=== PATIENT | female | born 1935 | race Hispanic/Latino ===

== ENCOUNTER 2017-11-02 09:51 | Outpatient (CLI) | payer MEDICARE ==
--- NOTE | 2017-11-05 07:46 | Cat Scan Report ---
FINAL REPORT EXAM: CT ANGIO NECK HISTORY: OCCLUSION AND STENOSIS OF ROBSON CAROTID ARTERIES TECHNIQUE: CT images are acquired through the neck in angiographic phase following intravenous administration of contrast. Transaxial , coronal and sagittal reformations with maximal intensity projections are provided. PRIORS: None FINDINGS: Normal 3 vessel aortic arch. Atherosclerosis at the right carotid bulb and proximal right internal carotid artery results in 50 percent stenosis by NASCET criteria on axial series 3, images 56 and 57. There is additional stenosis in the 50 percent range in the supraclinoid right internal carotid artery. There is approximately 50 percent stenosis in the proximal right subclavian artery on axial series 3, images 28-31 and sagittal series 202, images 35-37. There is approximately 70 percent stenosis by NASCET criteria at the origin of the left common carotid artery on axial series 3, image 20 and coronal image 40. Additional stenosis in the 50 percent range involving the proximal left internal carotid artery on axial series 3, images 58-60. There is up to 50 percent stenosis in the supraclinoid left internal carotid artery. There is approximately 50 percent stenosis at the origin of the right and left vertebral artery. Otherwise normal caliber of the vertebral arteries. Well opacified and normal caliber basilar artery. Posterior cerebral arteries and their major branches are well opacified and normal in caliber. The [place]way of [place] is intact. IMPRESSION: Approximately 70 percent stenosis at the origin of the left common carotid artery. Approximately 50 percent stenosis involving the carotid bulbs and proximal right and left internal carotid arteries, as well as the supraclinoid internal carotid arteries. Approximately 50 percent stenosis in the proximal right subclavian artery. Approximately 50 percent stenosis at the origin of the right and left vertebral artery. Intact northway of [place].
== END 2017-11-02 09:52 | disposition home or self-care (01) ==
LOC: CT 09:51
PROVIDERS: ATTEND Surgery Vascular Surgery
DX: I65.23 Occlusion and stenosis of bilateral carotid arteries (principal); E78.5 Hyperlipidemia, unspecified; J43.9 Emphysema, unspecified; I73.00 Raynaud's syndrome without gangrene; Z87.891 Personal history of nicotine dependence; Z90.49 Acquired absence of other specified parts of digestive tract; Z90.710 Acquired absence of both cervix and uterus
CPT/HCPCS: 36415; 70498; 82565; 84520; Q9967

== ENCOUNTER 2018-12-19 09:13 | Outpatient (CLI) | payer MEDICARE | END 2018-12-19 09:14 | disposition home or self-care (01) | LOC: LAB 09:13 | PROVIDERS: ATTEND Internal Medicine | DX: Z13.220 Encounter for screening for lipoid disorders (principal); E11.22 Type 2 diabetes mellitus with diabetic chronic kidney disease; K21.9 Gastro-esophageal reflux disease without esophagitis; N18.3 Chronic kidney disease, stage 3 (moderate); I12.9 Hypertensive chronic kidney disease with stage 1 through stage 4 chronic kidney disease, or unspecified chronic kidney disease; E03.9 Hypothyroidism, unspecified; Z90.710 Acquired absence of both cervix and uterus | CPT/HCPCS: 36415; 84443 ==

== ENCOUNTER 2019-03-31 14:20 | Outpatient (CLI) | payer MEDICARE ==
--- NOTE | 2019-03-31 15:52 | Cat Scan Report ---
CT HEAD WITHOUT CONTRAST INDICATION : [id number]. Blurred vision. TECHNIQUE: Axial imaging performed from the skull apex through the skull base without the use of con trast. Sagittal and coronal reformatted images. All CT scans at this location are performed using C T dose reduction for ALARA by means of automated exposure control. COMPARISON: None FINDINGS: Parenchyma: No acute intracranial hemorrhage or parenchymal abnormality. Mild diffuse cortical volum e loss and mild chronic ischemic changes in the white matter are identified which are appropriate for this person's age. Ventricles: Ventricles are normal in size and appear symmetric. Bones: No acute osseous abnormality. Sinuses: Sinuses and mastoid air cells are clear. Orbits: Orbital cavities and contents are symmetric and unremarkable. Soft tissues: Soft tissues including the orbits appear normal. IMPRESSION: No acute abnormality. Age appropriate volume loss and chronic white matter changes. Signer Name: Shaheed Arriola Jr, MD Signed: 03/31/2019 3:48 PM Workstation Name: [id number]
== END 2019-03-31 14:21 | disposition home or self-care (01) ==
LOC: CT 14:20
PROVIDERS: ATTEND Internal Medicine
DX: R90.82 White matter disease, unspecified (principal); I10 Essential (primary) hypertension; K21.9 Gastro-esophageal reflux disease without esophagitis; E03.9 Hypothyroidism, unspecified; Z90.710 Acquired absence of both cervix and uterus
CPT/HCPCS: 70450

== ENCOUNTER 2019-04-09 11:12 | Day surgery (SDC) | payer MEDICARE ==
[2019-04-09] MEDS ORDERED: MYDRIACYL OS ONE (11:38)
[2019-04-09] MEDS ORDERED: NEOFRIN OS ONE (11:38)
[2019-04-09] MEDS ORDERED: IOPIDINE OS ONE (11:38)
[2019-04-09 12:27] VITALS: BP 110/42
== END 2019-04-09 11:13 | disposition home or self-care (01) ==
LOC: OR 11:12
PROVIDERS: ATTEND Specialist
DX: H26.492 Other secondary cataract, left eye (principal); I10 Essential (primary) hypertension; G47.30 Sleep apnea, unspecified; K21.9 Gastro-esophageal reflux disease without esophagitis; E03.9 Hypothyroidism, unspecified; Z79.899 Other long term (current) drug therapy; Z88.2 Allergy status to sulfonamides; Z79.82 Long term (current) use of aspirin; Z87.891 Personal history of nicotine dependence; Z98.41 Cataract extraction status, right eye; Z98.42 Cataract extraction status, left eye; Z90.49 Acquired absence of other specified parts of digestive tract; Z90.710 Acquired absence of both cervix and uterus; Z72.89 Other problems related to lifestyle; Z98.890 Other specified postprocedural states

== ENCOUNTER 2019-07-02 09:17 | Outpatient (CLI) | payer MEDICARE ==
[2019-07-02 11:13] LABS: Albumin 4.4 g/dL (3.9-5); Calcium 9.9 mg/dL (8.4-10.2); Chol/HDL Ratio 3.06 %
== END 2019-07-02 09:18 | disposition home or self-care (01) ==
LOC: LAB 09:17
PROVIDERS: ATTEND Internal Medicine
DX: E03.9 Hypothyroidism, unspecified (principal); E87.5 Hyperkalemia; E83.52 Hypercalcemia; R73.09 Other abnormal glucose; N18.1 Chronic kidney disease, stage 1; Z88.8 Allergy status to other drugs, medicaments and biological substances
CPT/HCPCS: 36415; 80053; 80061; 83036; 84443

== ENCOUNTER 2020-01-22 12:50 | Outpatient (CLI) | payer MEDICARE ==
--- NOTE | 2020-01-22 16:51 | Cat Scan Report ---
CT ABDOMEN AND PELVIS WITHOUT CONTRAST HISTORY: OTHER MICROSCOPIC HEMATURIA, OTHER RETENTION OF URINE. COMPARISON: None. TECHNIQUE: CT images of the abdomen and pelvis were obtained without administration of intravenous co ntrast. All CT scans at this location are performed using CT dose reduction for ALARA by means of au tomated exposure control. FINDINGS: Lungs/bones: Moderate emphysema with otherwise clear lung bases. There are degenerative and scolioti c changes in the spine and also degenerative changes in the pelvis. No acute osseous abnormality. Old healed left pubic rami fractures. Abdomen/pelvis: The gallbladder is surgically absent. The liver is enlarged with nothing acute. The spleen, pancreas, adrenals, kidneys, and proximal GI tract appear unremarkable. There is an infrarena l abdominal aortic aneurysm measuring 3.1 cm in maximal dimension on image 199 of series 3. Inner bladder is mostly collapsed and a Sparks catheter is in place; however, there appears to be mild urinary bladder wall thickening. Uterus appears to be surgically absent. No pelvic free fluid. There is advanced colonic diverticulosis with no acute inflammatory change identified. IMPRESSION: 1. Questionable mild urinary bladder wall thickening. Otherwise no clear etiology for hematuria ident ified on this examination. Specifically no stone disease or obvious mass on this noncontrast exam. 2. Additional incidental findings as above. Signer Name: Tommy Baez MD Signed: 01/22/2020 4:46 PM Workstation Name: [id number]
== END 2020-01-22 12:51 | disposition home or self-care (01) ==
LOC: CT 12:50
PROVIDERS: ATTEND Urology
DX: K76.89 Other specified diseases of liver (principal); I71.9 Aortic aneurysm of unspecified site, without rupture; G31.89 Other specified degenerative diseases of nervous system; M16.9 Osteoarthritis of hip, unspecified; R33.8 Other retention of urine; R31.29 Other microscopic hematuria; Z90.49 Acquired absence of other specified parts of digestive tract
CPT/HCPCS: 74176

== ENCOUNTER 2021-05-06 12:29 | Outpatient (CLI) | payer MEDICARE ==
[2021-05-06 13:18] LABS: Basophils % (Auto) 0.8 % (0.0-1.8); Eosinophils # (Auto) 0.3 K/mm3 (0.0-0.4); Eosinophils % (Auto) 5.1 % (0.0-4.3); Hematocrit 34.2 % (30.3-42.9); Hemoglobin 11.8 gm/dl (10.1-14.3); Lymphocytes # (Auto) 0.9 K/mm3 (1.2-5.4); Lymphocytes % (Auto) 14.7 % (13.4-35.0); Mean Corpuscular HGB Conc 34 % (30-34); Mean Corpuscular Volume 92 fl (79-97); Monocytes # (Auto) 0.6 K/mm3 (0.0-0.8); Monocytes % (Auto) 9.4 % (0.0-7.3); Platelet Count 241 K/mm3 (140-440); Red Cell Distribution Width 14.3 % (13.2-15.2)
[2021-05-06 13:24] LABS: Albumin 4.6 g/dL (3.9-5); Calcium 10.2 mg/dL (8.4-10.2)
[2021-05-06 13:42] LABS: Bacteria,Urine 1+ /HPF (Negative); Bilirubin,Urine NEG (Negative); Blood,Urine NEG (Negative); Color,Urine Yellow (Yellow); Hyaline Casts,Urine 3 /LPF; Protein,Urine <15 mg/dL mg/dL (Negative); Urobilinogen,Urine < 2.0 mg/dL (<2.0)
[2021-05-06 13:53] LABS: RBC,Urine < 1.0 /HPF (0.0-6.0)
--- NOTE | 2021-05-06 14:22 | XRay Report ---
PELVIS ONE VIEW INDICATION / CLINICAL INFORMATION: PELVIC AND PERINEAL PAIN COMPARISON: CT abdomen and pelvis without contrast from 01/22/2020. FINDINGS: BONES and JOINT(S): No acute fracture or subluxation. Mild posterior arthritis of the hips is again n oted with moderate lumbar spondylosis and mild degenerative changes of the SI joints. SOFT TISSUES: No significant abnormality. ADDITIONAL FINDINGS: None. IMPRESSION: 1. No acute findings. 2. No significant interval change. Signer Name: Danial Irving MD Signed: 05/06/2021 2:18 PM Workstation Name: [id number]
== END 2021-05-06 12:30 | disposition home or self-care (01) ==
LOC: XRAY 12:29
PROVIDERS: ATTEND Internal Medicine
DX: N18.30 Chronic kidney disease, stage 3 unspecified (principal); N39.0 Urinary tract infection, site not specified; E03.9 Hypothyroidism, unspecified; M16.0 Bilateral primary osteoarthritis of hip; M47.898 Other spondylosis, sacral and sacrococcygeal region; Z00.00 Encounter for general adult medical examination without abnormal findings
CPT/HCPCS: 36415; 72170; 80053; 81001; 84443; 85025; 87086

== ENCOUNTER 2021-05-13 07:43 | Outpatient (CLI) | payer MEDICARE ==
--- NOTE | 2021-05-13 08:29 | Cat Scan Report ---
CT BRAIN: 05/13/2021 INDICATION / CLINICAL INFORMATION: FACIAL WEAKNESS NO HX OF STROKE. COMPARISON: 03/31/2019 FINDINGS: BRAIN/INTRACRANIAL STRUCTURES: Unenhanced CT images of the brain demonstrate no evidence of acute int racranial abnormality. Ventricles and sulci are prominent in size, consistent with age-related atrophic change. Chronic whit e matter hypoattenuation is present throughout the cerebral hemispheric white matter. There is no CT evidence of acute large vessel territory ischemic injury, hemorrhage, or mass. There a re no abnormal extra-axial fluid collections. Minimal upper position of the odontoid relative to the foramen magnum is noted, consistent with mild basilar invagination. This is unchanged when compared to the prior exam. Atherosclerotic vascular calcifications are present in the distal internal carotid arteries and verte bral arteries. EXTRACRANIAL STRUCTURES: Unremarkable. IMPRESSION: No acute abnormality. Stable chronic and age-related changes. No significant change when compared to 03/31/2019. All CT scans at this location are performed using dose reduction to ALARA by means of automated expos ure control. Signer Name: Forrest Velázquez MD Signed: 05/13/2021 8:25 AM Workstation Name: [email or web address]
== END 2021-05-13 07:44 | disposition home or self-care (01) ==
LOC: CT 07:43
PROVIDERS: ATTEND Internal Medicine
DX: R29.810 Facial weakness (principal); I25.10 Atherosclerotic heart disease of native coronary artery without angina pectoris
CPT/HCPCS: 70450

== ENCOUNTER 2021-06-09 15:22 | Outpatient (CLI) | payer MEDICARE ==
[2021-06-09 15:53] LABS: Bilirubin,Urine NEG (Negative); Blood,Urine SM (Negative); Color,Urine Yellow (Yellow); Protein,Urine <15 mg/dL mg/dL (Negative); Urobilinogen,Urine < 2.0 mg/dL (<2.0); WBC,Urine < 1.0 /HPF (0.0-6.0)
[2021-06-09 16:22] LABS: Calcium 10.2 mg/dL (8.4-10.2)
== END 2021-06-09 15:23 | disposition home or self-care (01) ==
LOC: LAB 15:22
PROVIDERS: ATTEND Internal Medicine
DX: N39.0 Urinary tract infection, site not specified (principal); E87.1 Hypo-osmolality and hyponatremia
CPT/HCPCS: 36415; 80048; 81001

== ENCOUNTER 2021-10-07 10:25 | Outpatient (CLI) | payer MEDICARE ==
[2021-10-07 13:34] LABS: Calcium 10.6 mg/dL (8.4-10.2)
== END 2021-10-07 10:26 | disposition home or self-care (01) ==
LOC: LAB 10:25
PROVIDERS: ATTEND Internal Medicine
DX: E87.1 Hypo-osmolality and hyponatremia (principal); E03.9 Hypothyroidism, unspecified; N18.30 Chronic kidney disease, stage 3 unspecified
CPT/HCPCS: 36415; 80048; 84443

== ENCOUNTER 2021-11-30 13:11 | Outpatient (CLI) | payer MEDICARE ==
[2021-11-30 13:58] LABS: Basophils % (Auto) 0.3 % (0.0-1.8); Eosinophils # (Auto) 0.1 K/mm3 (0.0-0.4); Eosinophils % (Auto) 1.3 % (0.0-4.3); Hematocrit 38.2 % (30.3-42.9); Lymphocytes # (Auto) 1.1 K/mm3 (1.2-5.4); Lymphocytes % (Auto) 12.7 % (13.4-35.0); Mean Corpuscular HGB Conc 34 % (30-34); Mean Corpuscular Volume 90 fl (79-97); Monocytes # (Auto) 0.5 K/mm3 (0.0-0.8); Monocytes % (Auto) 6.1 % (0.0-7.3); Platelet Count 286 K/mm3 (140-440); Red Blood Count 4.26 M/mm3 (3.65-5.03); Red Cell Distribution Width 14.3 % (13.2-15.2)
[2021-11-30 13:59] LABS: Bacteria,Urine 1+ /HPF (Negative); Bilirubin,Urine NEG (Negative); Blood,Urine NEG (Negative); Color,Urine Yellow (Yellow); Mucus,Urine FEW /HPF; Protein,Urine <15 mg/dL mg/dL (Negative); RBC,Urine < 1.0 /HPF (0.0-6.0); Urobilinogen,Urine < 2.0 mg/dL (<2.0)
[2021-11-30 14:18] LABS: Albumin 4.5 g/dL (3.9-5); Calcium 9.9 mg/dL (8.4-10.2)
== END 2021-11-30 13:12 | disposition home or self-care (01) ==
LOC: LAB 13:11
PROVIDERS: ATTEND Internal Medicine
DX: E87.1 Hypo-osmolality and hyponatremia (principal); N32.9 Bladder disorder, unspecified; N18.30 Chronic kidney disease, stage 3 unspecified; E83.52 Hypercalcemia; R20.2 Paresthesia of skin
CPT/HCPCS: 36415; 80053; 81001; 82607; 83970; 85025; 86334

== ENCOUNTER 2022-04-07 09:22 | Outpatient (CLI) | payer MEDICARE | END 2022-04-07 09:23 | disposition home or self-care (01) | LOC: LAB 09:22 | PROVIDERS: ATTEND Internal Medicine | DX: E03.9 Hypothyroidism, unspecified (principal); E78.1 Pure hyperglyceridemia | CPT/HCPCS: 36415; 80048; 84443 ==